=== PATIENT | female | born 1995 | race Caucasian/White ===

== ENCOUNTER 2018-05-25 12:07 | Outpatient (CLI) | payer MEDICAID | END 2018-05-25 14:58 | disposition left against medical advice (07) | LOC: OBT 12:07 → L-D 12:07 → OBT 13:15 → L-D 13:15 → OBT 14:58 | DX: O48.0 Post-term pregnancy (principal); Z3A.40 40 weeks gestation of pregnancy | CPT/HCPCS: 76818 ==

== ENCOUNTER 2018-05-26 09:20 | Inpatient (IN) | payer MEDICAID ==
[2018-05-26] MEDS ORDERED: OXYTOCIN 30 UNITS/LR 500 ML IV (10:00)
[2018-05-26] MEDS ORDERED: CARBOPROST 250 MCG INJ IM (10:00)
[2018-05-26] MEDS ORDERED: MISOPROSTOL 200 MCG TAB PR (10:00)
[2018-05-26] MEDS: LACTATED RINGER'S 1,000 ML IV* ×2 (10:35→16:38)
[2018-05-26 11:07] LABS: ADD MAN DIFF? NO
[2018-05-26 11:13] LABS: BASOPHILS % 0.6 % (0.0-2.0); EOSINOPHILS # 0.1 10^3/ul (0.0-0.5); EOSINOPHILS % 0.9 % (0.0-7.0); HEMATOCRIT 36.6 % (37.0-47.0); HEMOGLOBIN 12.5 g/dl (12.0-16.0); LYMPHOCYTES # 1.3 10^3/ul (0.8-2.9); LYMPHOCYTES % 19.3 % (15.0-51.0); MEAN CORPUSCULAR HEMOGLOBIN 30.2 pg (29.0-33.0); MEAN CORPUSCULAR HGB CONC 34.2 g/dl (32.0-37.0); MEAN CORPUSCULAR VOLUME 88.4 fl (82.0-101.0); MEAN PLATELET VOLUME 10.3 fl (7.4-10.4); MONOCYTE # 0.5 10^3/ul (0.3-0.9); MONOCYTES % 7.7 % (0.0-11.0); NEUTROPHIL # 4.5 10^3/ul (1.6-7.5); NEUTROPHILS % 68.2 % (39.0-77.0); PLATELET COUNT 252 10^3/UL (140-415); RED BLOOD COUNT 4.14 10^6/ul (4.20-5.40); RED CELL DISTRIBUTION WIDTH 12.7 % (11.5-14.5)
[2018-05-26 11:13] LABS: WHITE BLOOD COUNT 6.6 10^3/ul (4.8-10.8)
[2018-05-26 12:10] LABS: PROTIME 12.2 Sec (11.9-14.9)
[2018-05-26] MEDS: DINOPROSTONE 10 MG VAG SUPP VAG (13:18)
[2018-05-26 16:12] LABS: RAPID PLASMA REAGIN NONREACTIVE (NR)
[2018-05-26 17:23] LABS: HEPATITIS B SURFACE ANTIGEN NEGATIVE (NEGATIVE)
[2018-05-27] MEDS: LACTATED RINGER'S 1,000 ML IV* ×5 (01:50→23:41)
[2018-05-27] MEDS: DINOPROSTONE 10 MG VAG SUPP VAG (04:10)
[2018-05-27] MEDS ORDERED: DIPHENHYDRAMINE 50 MG INJ IV (11:00)
[2018-05-27] MEDS ORDERED: KETOROLAC 30 MG INJ IV (11:00)
[2018-05-27] MEDS ORDERED: ONDANSETRON 4 MG INJ IV (11:00)
[2018-05-27] MEDS ORDERED: HYDROmorphONE 0.5 MG/0.5 ML SYG IV ×2 (11:00)
[2018-05-27] MEDS ORDERED: NALOXONE (0.4 MG/ML) INJ IV (11:00)
[2018-05-27] MEDS: FENTAnyl 2MCG/ML-ROPIV 0.2% 100 ML BAG EPI (18:17)
[2018-05-27] MEDS: METHYLERGONOVINE 0.2 MG INJ IM (21:20)
[2018-05-27] MEDS: LIDOCAINE 1% (MPF) 30 ML INJ INJ (21:28)
[2018-05-27] MEDS: OXYTOCIN 30 UNITS/LR 500 ML IV ×3 (21:46→23:41)
[2018-05-28] MEDS ORDERED: SENNA/DOCUSATE NA (8.6MG/50MG) TAB PO
[2018-05-28] MEDS ORDERED: DIPHENHYDRAMINE 25 MG CAP PO
[2018-05-28] MEDS ORDERED: CARBOPROST 250 MCG INJ IM
[2018-05-28] MEDS ORDERED: OXYTOCIN 30 UNITS/LR 500 ML IV
[2018-05-28] MEDS ORDERED: HYDROCODONE/APAP (5/325) TAB PO
[2018-05-28] MEDS ORDERED: ACETAMINOPHEN 325 MG TAB PO
[2018-05-28] MEDS ORDERED: METHYLERGONOVINE 0.2 MG INJ IM
[2018-05-28] MEDS ORDERED: MISOPROSTOL 200 MCG TAB PR
[2018-05-28] MEDS ORDERED: ZOLPIDEM 5 MG TAB PO
[2018-05-28] MEDS ORDERED: MAGNESIUM HYDROXIDE 30ML CUP PO
[2018-05-28] MEDS: IBUPROFEN 800 MG TAB PO ×5 (00:32→23:10)
[2018-05-28] MEDS: OXYTOCIN 30 UNITS/LR 500 ML IV (02:01)
[2018-05-28] MEDS: BENZOCAINE 20% 56 ML SPRAY TOP (02:02)
[2018-05-28] MEDS: WITCH HAZEL/GLYCERIN PAD PR (02:02)
[2018-05-28 06:42] LABS: ADD MAN DIFF? NO
[2018-05-28 06:47] LABS: BASOPHILS % 0.3 % (0.0-2.0); EOSINOPHILS # 0.1 10^3/ul (0.0-0.5); EOSINOPHILS % 0.6 % (0.0-7.0); HEMATOCRIT 30.7 % (37.0-47.0); HEMOGLOBIN 10.8 g/dl (12.0-16.0); LYMPHOCYTES # 1.3 10^3/ul (0.8-2.9); LYMPHOCYTES % 12.1 % (15.0-51.0); MEAN CORPUSCULAR HEMOGLOBIN 31.2 pg (29.0-33.0); MEAN CORPUSCULAR HGB CONC 35.2 g/dl (32.0-37.0); MEAN CORPUSCULAR VOLUME 88.7 fl (82.0-101.0); MEAN PLATELET VOLUME 10.2 fl (7.4-10.4); MONOCYTES % 8.9 % (0.0-11.0); NEUTROPHIL # 8.3 10^3/ul (1.6-7.5); NEUTROPHILS % 77.1 % (39.0-77.0); PLATELET COUNT 200 10^3/UL (140-415); RED BLOOD COUNT 3.46 10^6/ul (4.20-5.40); RED CELL DISTRIBUTION WIDTH 12.5 % (11.5-14.5)
[2018-05-28 06:47] LABS: WHITE BLOOD COUNT 10.8 10^3/ul (4.8-10.8)
[2018-05-29] MEDS: IBUPROFEN 800 MG TAB PO ×2 (05:11→11:54)
[2018-05-29] MEDS: VARICELLA VACCINE LIVE/PF 1,350 UNIT/0.5 ML ML SC* (09:00)
[2018-05-29] MEDS: MEASLES,MUMPS,RUBELLA VACCINE INJ SC* (09:00)
[2018-05-29] MEDS: LANOLIN 7 GM TUBE TOP (11:54)
[2018-05-29] MEDS: DIPHTH/TET/ACEL PERTUSS (ADULT) 0.5 ML VIAL IM* (13:56)
== END 2018-05-29 16:19 | disposition home or self-care (01) | DRG 775 ==
LOC: PP1 05-27 23:19 → L-D 09:20
PROVIDERS: Obstetrics & Gynecology
PROC: 10E0XZZ Delivery of Products of Conception, External Approach (ICD-10-PCS; principal; 2018-05-27)
PROC: 3E033VJ Introduction of Other Hormone into Peripheral Vein, Percutaneous Approach (ICD-10-PCS; 2018-05-27)
DX: O48.0 Post-term pregnancy (principal); Z3A.40 40 weeks gestation of pregnancy; Z37.0 Single live birth
CPT/HCPCS: 62319; 76815; 76818; 85025; 85610; 85730; 86592; 86850; 86900; 86901; 87340; 90715